=== PATIENT | male | born 1960 | race African-American/Black ===

== ENCOUNTER 2017-11-27 20:05 | Inpatient (IN) | payer MEDICARE, MEDICAID ==
[~2017-11-27] VITALS: Ht 170.2 cm; Wt 68.0 kg
[2017-11-27 20:05] VITALS: BP 89/63
[2017-11-27] MEDS ORDERED: Isovue-300 100ml vial INJ PRN (20:15)
--- NOTE | 2017-11-27 20:55 | Diagnostic Imaging Report ---
EXAM: XR Chest, 1 View CLINICAL HISTORY: SOB TECHNIQUE: Frontal view of the chest. COMPARISON: No relevant prior studies available. FINDINGS: Lungs: No consolidation. Pleural space: Unremarkable. No pneumothorax. Heart: Unremarkable. No cardiomegaly. Mediastinum: Unremarkable. Bones/joints: No acute fracture. IMPRESSION: No acute cardiopulmonary disease.
[2017-11-27 22:00] VITALS: BP 105/69
[2017-11-27 22:00] LABS: EOSINOPHILS % (AUTO) 0.1 % (0.0-3.0); HEMATOCRIT 45.2 % (42.0-52.0); HEMOGLOBIN 15.4 G/DL (14.2-18.0); LYMPHOCYTES % (AUTO) 18.6 % (20.0-45.0); MEAN CORPUSCULAR VOLUME 89 FL (80-99); MONOCYTES % (AUTO) 6.7 % (1.0-10.0); NEUTROPHILS % (AUTO) 73.5 % (45.0-75.0); PLATELET COUNT 157 K/UL (150-450); WHITE BLOOD COUNT 9.1 K/UL (4.8-10.8)
[2017-11-27 22:08] LABS: INR 1.1 (0.9-1.1)
[2017-11-27] MEDS ORDERED: LISINOPRIL20 MG ORAL (22:11)
[2017-11-27] MEDS ORDERED: NORMODYNE300 MG ORAL (22:11)
[2017-11-27] MEDS ORDERED: SIMVASTATIN20 MG ORAL (22:11)
[2017-11-27] MEDS ORDERED: METFORMIN HCL1000 M1 ORAL (22:11)
[2017-11-27] MEDS ORDERED: ASPIR 8181 MG ORAL (22:11)
[2017-11-27] MEDS ORDERED: GLIPIZIDE5 MG ORAL (22:11)
[2017-11-27] MEDS ORDERED: ADALAT10 MG ORAL (22:11)
[2017-11-27 22:14] LABS: ANION GAP 12 mmol/L (5-15); BLOOD UREA NITROGEN 88 mg/dL (7-18); CARBON DIOXIDE 27 MMOL/L (21-32); CHLORIDE 99 MMOL/L (98-107); CREATININE 2.8 MG/DL (0.55-1.30); SODIUM 138 MMOL/L (136-145)
[2017-11-27 22:20] LABS: ALANINE AMINOTRANSFERASE 24 U/L (12-78); ALBUMIN 3.8 G/DL (3.4-5.0); ALBUMIN/GLOBULIN RATIO 1.1 (1.0-2.7); ALKALINE PHOSPHATASE 83 U/L (46-116); ASPARTATE AMINO TRANSFERASE 19 U/L (15-37); BILIRUBIN,TOTAL 0.9 MG/DL (0.2-1.0)
[2017-11-27] MEDS ORDERED: Insulin Human Regular 100units/ml 3ml IV ONE (22:30)
--- NOTE | 2017-11-27 23:12 | Emergency Room Report ---
History of Present Illness General Chief Complaint: Syncope Source: Patient, EMS Present Illness HPI Patient is a 57-year-old male sent in by after witnessed syncopal episode at home. Patient prior history of diabetes. The patient was noted to have had been vomiting multiple times prior to syncopal episode. The patient had been reportedly having some epigastric pain. He reportedly had been urinating normally. Patient has type 2 diabetes. Allergies: Coded Allergies: No Known Allergies (Unverified , 11/27/17) Patient History Past Medical History: see triage record Reviewed Nursing Documentation: PMH: Agreed; PSxH: Agreed Nursing Documentation-PMH Past Medical History: No History, Except For Hx Hypertension: Yes Hx Diabetes: Yes Hx Gastrointestinal Problems: Yes - Acid reflux Hx Neurological Problems: Yes - Brain aneurysm Review of Systems All Other Systems: limited - by mental status Physical Exam Vital Signs Date Time Temp Pulse Resp B/P (MAP) Pulse Ox O2 Delivery O2 Flow Rate FiO2 11/27/17 19:40 98.8 106 19 89/63 100 Room Air 98.8 Sp02 EP Interpretation: reviewed, normal General Appearance: normal inspection, no apparent distress, moderate distress , Chronically Ill Head: atraumatic ENT: normal ENT inspection, hearing grossly normal, normal voice Neck: normal inspection, full range of motion, supple, no meningismus, no bony tend Respiratory: normal inspection, lungs clear, normal breath sounds, no respiratory distress, no retraction, no wheezing Cardiovascular #1: no edema, tachycardia Gastrointestinal: non tender, soft, no guarding, no hernia Genitourinary: no CVA tenderness Musculoskeletal: normal inspection, back normal, normal range of motion Neurologic: normal inspection, alert, oriented x3, 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 Differential diagnosis included but was not limited to sepsis,arrhythmia, orthostatic hypotension, hypovolemia, vasovagal, anemia among others.Patient was noted to have elevation of his BUN/creatinine compared to his baseline. Patient was given IV medication for hyperglycemia. Per the patient's patient had previously normal renal function and previously been hospitalized at [facility] about one month ago.The patient was taking multiple blood pressure medications which would be expected to cause bradycardia however the patient was tachycardic initially. Patient was noted to have improvement in his blood pressure after IV hydration. He had been given IV fluids by paramedics.Dr. Andres was contacted for Dr. Billy due to panel physician. Labs Test 11/27/17 21:46 White Blood Count 9.1 K/UL (4.8-10.8) Red Blood Count 5.10 M/UL (4.70-6.10) Hemoglobin 15.4 G/DL (14.2-18.0) Hematocrit 45.2 % (42.0-52.0) Mean Corpuscular Volume 89 FL (80-99) Mean Corpuscular Hemoglobin 30.2 PG (27.0-31.0) Mean Corpuscular Hemoglobin Concent 34.0 G/DL (32.0-36.0) Red Cell Distribution Width 12.0 % (11.6-14.8) Platelet Count 157 K/UL (150-450) Mean Platelet Volume 8.5 FL (6.5-10.1) Neutrophils (%) (Auto) 73.5 % (45.0-75.0) Lymphocytes (%) (Auto) 18.6 % (20.0-45.0) Monocytes (%) (Auto) 6.7 % (1.0-10.0) Eosinophils (%) (Auto) 0.1 % (0.0-3.0) Basophils (%) (Auto) 1.0 % (0.0-2.0) Prothrombin Time 11.7 SEC (9.30-11.50) Prothromb Time International Ratio 1.1 (0.9-1.1) Activated Partial Thromboplast Time 20 SEC (23-33) Sodium Level 138 MMOL/L (136-145) Potassium Level 4.0 MMOL/L (3.5-5.1) Chloride Level 99 MMOL/L (98-107) Carbon Dioxide Level 27 MMOL/L (21-32) Anion Gap 12 mmol/L (5-15) Blood Urea Nitrogen 88 mg/dL (7-18) Creatinine 2.8 MG/DL (0.55-1.30) Estimat Glomerular Filtration Rate 28.6 mL/min (>60) Glucose Level 475 MG/DL (74-106) Lactic Acid Level 2.50 mmol/L (0.4-2.0) Calcium Level 9.0 MG/DL (8.5-10.1) Total Bilirubin 0.9 MG/DL (0.2-1.0) Aspartate Amino Transf (AST/SGOT) 19 U/L (15-37) Alanine Aminotransferase (ALT/SGPT) 24 U/L (12-78) Alkaline Phosphatase 83 U/L (46-116) Troponin I 0.021 ng/mL (0.000-0.056) Total Protein 7.2 G/DL (6.4-8.2) Albumin 3.8 G/DL (3.4-5.0) Globulin 3.4 g/dL Albumin/Globulin Ratio 1.1 (1.0-2.7) EKG Diagnostic Results Rate: normal Rhythm: NSR - 95 ST Segments: other - prolonged qt Rhythm Strip Diag. Results EP Interpretation: yes Rhythm: NSR, no PVC's, no ectopy Last Vital Signs Date Time Temp Pulse Resp B/P (MAP) Pulse Ox O2 Delivery O2 Flow Rate FiO2 11/27/17 19:40 98.8 106 19 89/63 100 Room Air 98.8 Status: improved Disposition: ADMITTED INPATIENT Condition: Serious Referrals: NOT CHOSEN IPA/,REFERRING (PCP) Thiago Mohan MD Nov 27, 2017 23:12
[2017-11-27 23:40] VITALS: BP 125/71
[2017-11-28 00:19] VITALS: BP 87/58
[2017-11-28] MEDS: D5NS 1,000 ML IV SCH ×2 (02:11→12:11)
[2017-11-28 04:00] VITALS: BP 109/58
[2017-11-28] MEDS: NovoLOG Insulin Flexpen SUBQ SCH ×4 (06:29→20:53)
[2017-11-28] MEDS ORDERED: NovoLOG Insulin Flexpen SUBQ SCH (06:30)
[2017-11-28 07:51] LABS: BASOPHILS % (AUTO) 0.8 % (0.0-2.0); EOSINOPHILS % (AUTO) 0.3 % (0.0-3.0); HEMOGLOBIN 13.2 G/DL (14.2-18.0); LYMPHOCYTES % (AUTO) 22.8 % (20.0-45.0); MEAN CORPUSCULAR VOLUME 88 FL (80-99); MONOCYTES % (AUTO) 6.2 % (1.0-10.0); PLATELET COUNT 181 K/UL (150-450); RED BLOOD COUNT 4.55 M/UL (4.70-6.10); RED CELL DISTRIBUTION WIDTH 11.8 % (11.6-14.8); WHITE BLOOD COUNT 9.2 K/UL (4.8-10.8)
[2017-11-28 08:00] VITALS: BP 139/74
[2017-11-28 08:12] LABS: ANION GAP 11 mmol/L (5-15); BLOOD UREA NITROGEN 82 mg/dL (7-18); CALCIUM 8.5 MG/DL (8.5-10.1); CARBON DIOXIDE 26 MMOL/L (21-32); CHLORIDE 101 MMOL/L (98-107); CREATININE 2.3 MG/DL (0.55-1.30); POTASSIUM 3.1 MMOL/L (3.5-5.1); SODIUM 138 MMOL/L (136-145)
[2017-11-28 12:00] VITALS: BP 131/78
[2017-11-28 12:30] VITALS: BP_SYST 113; BP_SYST 114; BP_SYST 118; BP_DIAS 71; BP_DIAS 72; BP_DIAS 83
--- NOTE | 2017-11-28 14:02 | History and Physical ---
History of Present Illness General Date patient seen: Nov 28, 2017 Time patient seen: 10:00 Reason for Hospitalization: Syncope Present Illness HPI 57 year old man with history of HTN, DM2, dyslipidemia who presents with a syncopal episode last night while at home. He is a poor historian, unable to provide details of the episode but cam tell me that he was feeling generally well prior to this. No chest pain, dyspnea, palpitations prior to the syncope. He remembers waking up en route to the ED with EMS. He also reports nausea and vomiting, no diarrhea, abdominal pain, fever or chills. In ED he was noted to be hypotensive with elevated creatinine and potassium levels. He current feels well, is ambulating independently per nursing. Allergies: Coded Allergies: No Known Allergies (Unverified , 11/27/17) Medication History Scheduled Aspirin* (Aspir 81*), 81 MG ORAL DAILY, (Reported) Glipizide* (Glipizide*), 10 MG ORAL BIDAC, (Reported) Labetalol HCl (Labetalol HCl), 300 MG ORAL EVERY 12 HOURS, (Reported) Lisinopril (Lisinopril*), 20 MG ORAL DAILY, (Reported) Metformin Hcl* (Metformin Hcl*), 1,000 MG ORAL BID, (Reported) Nifedipine (Nifedipine*), 30 MG ORAL DAILY, (Reported) Simvastatin (Zocor), 20 MG ORAL BEDTIME, (Reported) Patient History Healthcare decision maker Resuscitation status Full Code Advanced Directive on File Family History Family History: FH: diabetes mellitus Social History Social History: (1) Marijuana smoker Review of Systems Constitutional: Denies: chills, fever Eye: Denies: blurred vision, double vision ENT: Denies: throat pain Respiratory: Denies: cough, wheezing Cardiovascular: Reports: syncope; Denies: chest pain, edema, palpitations Gastrointestinal: Denies: abdominal pain, constipation, diarrhea Genitourinary: Denies: discharge, dysuria Musculoskeletal: Denies: back pain, joint pain Skin: Denies: rash, change in color Neurological: Reports: syncope; Denies: headache, numbness, focal weakness Endocrine: Denies: excessive sweating, flushing Hematologic/Lymphatic: Denies: anemia, blood clots Physical Exam General Appearance: no apparent distress, alert HEENT: normocephalic, atraumatic, anicteric Neck: non-tender, normal alignment, supple Respiratory/Chest: chest wall non-tender, lungs clear, normal breath sounds, no respiratory distress Cardiovascular/Chest: normal peripheral pulses, normal rate, regular rhythm Abdomen: normal bowel sounds, non tender, soft Extremities: normal range of motion, non-tender, normal inspection Skin Exam: normal pigmentation, warm/dry 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, no motor/sensory deficits, alert, oriented x 3 Last 24 Hour Vital Signs Date Time Temp Pulse Resp B/P (MAP) Pulse Ox O2 Delivery O2 Flow Rate FiO2 11/28/17 12:30 113/72 (86) 118/83 (95) 114/71 (85) 11/28/17 12:00 98.0 88 131/78 (95) 100 98.0 11/28/17 09:00 Room Air 11/28/17 08:00 94 11/28/17 08:00 96.8 86 139/74 (95) 100 96.8 11/28/17 04:00 98.2 91 109/58 (75) 100 98.2 11/28/17 04:00 91 11/28/17 00:26 Nasal Cannula 2.0 11/28/17 00:19 97.7 107 87/58 (68) 100 97.7 11/28/17 00:00 109 11/27/17 23:55 98.6 101 19 125/71 100 Nasal Cannula 2.0 98.6 11/27/17 23:40 98.6 101 19 125/71 100 Nasal Cannula 2.0 98.6 11/27/17 22:00 98.7 103 18 105/69 100 Nasal Cannula 2.0 98.7 11/27/17 20:05 98.8 111 19 89/63 100 Room Air 98.8 11/27/17 19:40 98.8 106 19 89/63 100 Room Air 98.8 Intake and Output 11/27/17 11/28/17 19:00 07:00 Intake Total 200 ml Output Total 0 ml Balance 200 ml Intake Oral 200 ml Output Urine Total 0 ml Laboratory Tests Test 11/27/17 21:46 11/28/17 06:55 White Blood Count 9.1 K/UL (4.8-10.8) 9.2 K/UL (4.8-10.8) Red Blood Count 5.10 M/UL (4.70-6.10) 4.55 M/UL (4.70-6.10) L Hemoglobin 15.4 G/DL (14.2-18.0) 13.2 G/DL (14.2-18.0) L Hematocrit 45.2 % (42.0-52.0) 40.0 % (42.0-52.0) L Mean Corpuscular Volume 89 FL (80-99) 88 FL (80-99) Mean Corpuscular Hemoglobin 30.2 PG (27.0-31.0) 29.0 PG (27.0-31.0) Mean Corpuscular Hemoglobin Concent 34.0 G/DL (32.0-36.0) 32.9 G/DL (32.0-36.0) Red Cell Distribution Width 12.0 % (11.6-14.8) 11.8 % (11.6-14.8) Platelet Count 157 K/UL (150-450) 181 K/UL (150-450) Mean Platelet Volume 8.5 FL (6.5-10.1) 9.1 FL (6.5-10.1) Neutrophils (%) (Auto) 73.5 % (45.0-75.0) 70.0 % (45.0-75.0) Lymphocytes (%) (Auto) 18.6 % (20.0-45.0) L 22.8 % (20.0-45.0) Monocytes (%) (Auto) 6.7 % (1.0-10.0) 6.2 % (1.0-10.0) Eosinophils (%) (Auto) 0.1 % (0.0-3.0) 0.3 % (0.0-3.0) Basophils (%) (Auto) 1.0 % (0.0-2.0) 0.8 % (0.0-2.0) Prothrombin Time 11.7 SEC (9.30-11.50) H Prothromb Time International Ratio 1.1 (0.9-1.1) Activated Partial Thromboplast Time 20 SEC (23-33) L Sodium Level 138 MMOL/L (136-145) 138 MMOL/L (136-145) Potassium Level 4.0 MMOL/L (3.5-5.1) 3.1 MMOL/L (3.5-5.1) L Chloride Level 99 MMOL/L (98-107) 101 MMOL/L (98-107) Carbon Dioxide Level 27 MMOL/L (21-32) 26 MMOL/L (21-32) Anion Gap 12 mmol/L (5-15) 11 mmol/L (5-15) Blood Urea Nitrogen 88 mg/dL (7-18) H 82 mg/dL (7-18) H Creatinine 2.8 MG/DL (0.55-1.30) H 2.3 MG/DL (0.55-1.30) H Estimat Glomerular Filtration Rate 28.6 mL/min (>60) 35.9 mL/min (>60) Glucose Level 475 MG/DL (74-106) H 434 MG/DL (74-106) H Lactic Acid Level 2.50 mmol/L (0.4-2.0) H Calcium Level 9.0 MG/DL (8.5-10.1) 8.5 MG/DL (8.5-10.1) Total Bilirubin 0.9 MG/DL (0.2-1.0) Aspartate Amino Transf (AST/SGOT) 19 U/L (15-37) Alanine Aminotransferase (ALT/SGPT) 24 U/L (12-78) Alkaline Phosphatase 83 U/L (46-116) Troponin I 0.021 ng/mL (0.000-0.056) Total Protein 7.2 G/DL (6.4-8.2) Albumin 3.8 G/DL (3.4-5.0) Globulin 3.4 g/dL Albumin/Globulin Ratio 1.1 (1.0-2.7) Height (Feet): 5 Height (Inches): 7.00 Weight (Pounds): 150 Medications Current Medications Medications (Trade) Dose Ordered Sig/Arnulfo Route PRN Reason Start Time Stop Time Status Last Admin Dose Admin Acetaminophen (Tylenol) 650 mg Q6H PRN ORAL Mild Pain/Temp > 100.5 11/28/17 01:15 12/28/17 01:14 Dextrose (Dextrose 50%) 25 ml STAT PRN IV Hypoglycemia 11/28/17 01:15 12/28/17 01:14 Dextrose (Dextrose 50%) 50 ml STAT PRN IV Hypoglycemia 11/28/17 01:15 12/28/17 01:14 Dextrose/Sodium Chloride 1,000 ml @ 100 mls/hr Q10H IV 11/28/17 03:00 12/28/17 02:59 11/28/17 12:11 Insulin Aspart (NovoLOG) BEFORE MEALS AND HS SUBQ 11/28/17 06:30 12/28/17 06:29 11/28/17 12:06 Iopamidol (Isovue-300 100ml) 100 ml NOW PRN INJ Radiology Procedure 11/27/17 20:15 Ondansetron HCl (Zofran) 4 mg Q4HR PRN IVP Nausea & Vomiting 11/28/17 01:15 12/28/17 01:14 Assessment/Plan Problem List: (1) Syncope Assessment & Plan: Suspected due to dehydration, hypovolemia, BP has improved. Will check orthostats and continue with IV fluids, change D5NS to NS. Continue cardiac monitoring. ICD Codes: R55 - Syncope and collapse SNOMED: 030961878 (2) Acute renal insufficiency Assessment & Plan: Possible RAMON, patient is sure about history of kidney disease and creatinine has improved since admission. Continue with IV fluids and hold all nephrotoxic meds, (ACEI, NSAIDS, diuretics). ICD Codes: N28.9 - Disorder of kidney and ureter, unspecified SNOMED: 975659075 (3) Type 2 diabetes mellitus Assessment & Plan: Uncontrolled, stop D5, continue lispro sliding scale. If sugars remains uncontrolled can start low dose Lantus as inpatient. ICD Codes: E11.9 - Type 2 diabetes mellitus without complications SNOMED: 24738693 Assessment/Plan Hyperkalemia, repeat K is 5.0, will continue to monitor BMP closely. Essential HTN, hold anti-hypertensives given low blood pressures. VTE PPx Venodyes Full Code Patient will require a hospitalization crossing 2 midnights in order to get IV hydration and monitoring of renal function. 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 Ortega Skinner MD Nov 28, 2017 14:02
--- NOTE | 2017-11-28 15:41 | Cardiology Report ---
APPROVED REPORT EKG Measurement Heart [id number] Sinus rhythm with premature atrial complexes Right axis deviation Incomplete right bundle branch block Nonspecific T wave abnormality Prolonged QT Abnormal ECG
[2017-11-28 20:00] VITALS: BP 126/70
[2017-11-28] MEDS: Heparin 5000 units/ml inj SUBQ SCH (20:54)
[2017-11-29] VITALS: BP 112/70
[2017-11-29 04:00] VITALS: BP 116/61
[2017-11-29] MEDS: NovoLOG Insulin Flexpen SUBQ SCH ×3 (06:14→16:30)
[2017-11-29 07:45] LABS: BASOPHILS % (AUTO) 0.5 % (0.0-2.0); EOSINOPHILS % (AUTO) 1.3 % (0.0-3.0); HEMATOCRIT 36.5 % (42.0-52.0); HEMOGLOBIN 12.3 G/DL (14.2-18.0); LYMPHOCYTES % (AUTO) 32.7 % (20.0-45.0); MEAN CORPUSCULAR VOLUME 88 FL (80-99); MONOCYTES % (AUTO) 5.9 % (1.0-10.0); NEUTROPHILS % (AUTO) 59.5 % (45.0-75.0); PLATELET COUNT 167 K/UL (150-450); RED BLOOD COUNT 4.17 M/UL (4.70-6.10); WHITE BLOOD COUNT 7.2 K/UL (4.8-10.8)
[2017-11-29 08:23] LABS: ANION GAP 10 mmol/L (5-15); BLOOD UREA NITROGEN 38 mg/dL (7-18); CALCIUM 8.5 MG/DL (8.5-10.1); CARBON DIOXIDE 26 MMOL/L (21-32); CHLORIDE 107 MMOL/L (98-107); CREATININE 1.3 MG/DL (0.55-1.30); SODIUM 143 MMOL/L (136-145)
--- NOTE | 2017-11-29 08:42 | Physician Query ---
--------- THIS DOCUMENT IS A PERMANENT PART OF THE MEDICAL RECORD --------- PLEASE COMPLETE THE DOCUMENT BEFORE SIGNING Dear Dr. Skinner Date: 11/29/2017 Staffing Clerk/CDS Name: Carol Ann Burns Staffing Clerk / CDS Phone # [phone] Exercise your independent professional judgment when responding to query. Question asked do not imply a particular answer is desired/expected Clinical Documentation States: Patient is admitted with dehydration. "Acute renal insufficiency" and "Possible RAMON" was documented in Assessment/plan. Clinical Findings Show: Creatinine - 11/27/17: 2.8, 11/28/17: 2.3, BUN: 88, 82 Can you please Clarify the condition below: Etiology [ ] ARF w/ Tubular Necrosis [ ] ARF w/ Cortical Necrosis [ ] ARF w/ Medullary Necrosis [ ] Acute Renal Failure (unspecified) [ ] Other: If Chronic, please specify the stage: [ ] CKD Stage 1 [ ] CKD Stage 2 [ ] CKD Stage 3 [ ] CKD Stage 4 [ ] CKD Stage 5 [ ] ESRD [ ] Not applicable Condition Present on Admission: [ ] Yes [ ] No [ ] Clinically Undeterminable Please also document in your Progress Notes and/or Discharge Summary and indicate if the condition was present on admission. Lakia ZAMBRANO
[2017-11-29] MEDS: Heparin 5000 units/ml inj SUBQ SCH (08:48)
[2017-11-29 09:00] VITALS: BP 135/93
--- NOTE | 2017-11-29 11:15 | Cardiology Report ---
APPROVED REPORT EXAM: Two-dimensional and M-mode echocardiogram with Doppler and color Doppler. INDICATION Syncope M-Mode DIMENSIONS IVSd1.2 (0.7-1.1cm)Left Atrium (MM)3.9 (1.6-4.0cm) LVDd4.9 (3.5-5.6cm)Aortic Root3.1 (2.0-3.7cm) PWd1.0 (0.7-1.1cm)Aortic Cusp Exc.2.3 (1.5-2.0cm) LVDs2.9 (2.5-4.0cm) PWs1.6 cm Normal left ventricular chamber size, systolic function and wall motion. Left ventricular ejection fraction estimated to be 55 %. Mild left ventricular hypertrophy. No evidence of pericardial effusion. All other cardiac chamber sizes are within normal limits. Focal aortic valve sclerosis with adequate cusp excursion. Mildly thickened mitral valve leaflets with normal excursion. Mild mitral annulus and aortic root calcification. Normal pulmonic valve structure. Normal tricuspid valve structure. IVC is normal in size with physiological collapse. A color flow and spectral Doppler study was performed and revealed: Trace aortic insufficiency. No mitral regurgitation. Mitral diastolic velocities suggest mild left ventricular diastolic dysfunction (Grade I). Trace tricuspid regurgitation. Tricuspid systolic velocities suggests peak right ventricular systolic pressure of 14 mmHg. No pulmonic regurgitation present.
[2017-11-29 12:00] VITALS: BP 147/68
[2017-11-29] MEDS ORDERED: Potassium Chloride 10 MEQ in NS 110 ML IV SCH (13:00)
--- NOTE | 2017-11-29 13:40 | Discharge Instructions ---
Discharge Instructions Discharge Instructions Follow up with: PCP in 1 week Diet: diabetic calorie control Special Instructions Stop taking lisinopril and resume after 3 days For Congestive Heart Failure Reminder Report to your physician any weight gain of 5 pounds or more in one week. Ortega Skinner MD Nov 29, 2017 13:40
--- NOTE | 2017-11-29 13:49 | Discharge Summary ---
Discharge Summary Hospital Course Date of Admission Nov 27, 2017 at 21:37 Date of Discharge 11/29/17 Admitting Diagnosis SYNCOPE, HYPOTENSION, RAMON HPI Jean Tyson is a 57 year old male who was admitted on Nov 27, 2017 at 21:37 for Syncope,Hypotension Consultations None Hospital Course Patient presented with syncope and hypotension, found to have RAMON all related to volume depletion/dehydration. He was treated with IV hydration and holding of ACEI, metformin with resolution RAMON and hypotension. He is ambulating independently. Patient had mild hypokalemia which was replaced with IV and oral KCl, will be discharged home in stable. Instructed to hold lisinopril for 3 days and follow up with his PCP within 1 week. Time spent discharging Mr. Tyson was 35 minutes which included time spent reviewing hospital course and discharge instructions with the patient. Discharge Medications Continued Medications: Aspirin* (Aspir 81*) 81 Mg Tablet.dr 81 MG ORAL DAILY, TAB (This prescription has been renewed) Glipizide* (Glipizide*) 5 Mg Tablet 10 MG ORAL BIDAC, TAB (This prescription has been renewed) Labetalol HCl (Labetalol HCl) 300 Mg Tablet 300 MG ORAL EVERY 12 HOURS, TAB (This prescription has been renewed) Metformin Hcl* (Metformin Hcl*) 1,000 Mg Tablet 1000 MG ORAL BID, TAB (This prescription has been renewed) Nifedipine (Nifedipine*) 10 Mg Capsule 30 MG ORAL DAILY, CAP (This prescription has been renewed) Simvastatin (Zocor) 20 Mg Tablet 20 MG ORAL BEDTIME, TAB (This prescription has been renewed) Discontinued Medications: Lisinopril (Lisinopril*) 20 Mg Tablet 20 MG ORAL DAILY, TAB Discharge Discharge Disposition Patient was discharged to Home Discharge Diagnoses: (1) RAMON (acute kidney injury) (2) Hypokalemia (3) Dehydration (4) Syncope Discharge Instructions Discharge Instructions Follow up with: PCP in 1 week Ortega Skinner MD Nov 29, 2017 13:48
[2017-11-29 16:00] VITALS: BP 128/82
--- NOTE | 2017-11-30 16:17 | Consultation ---
History of Present Illness General Date patient seen: Nov 28, 2017 Chief Complaint: Syncope Present Illness HPI 57 year old man with history of HTN, DM2, dyslipidemia who presents with a syncopal episode last night while at home the pt is confused and is a poor historian Allergies: Coded Allergies: No Known Allergies (Unverified , 11/27/17) Medication History Scheduled Aspirin* (Aspir 81*), 81 MG ORAL DAILY, (Reported) Glipizide* (Glipizide*), 10 MG ORAL BIDAC, (Reported) Labetalol HCl (Labetalol HCl), 300 MG ORAL EVERY 12 HOURS, (Reported) Metformin Hcl* (Metformin Hcl*), 1,000 MG ORAL BID, (Reported) Nifedipine (Nifedipine*), 30 MG ORAL DAILY, (Reported) Simvastatin (Zocor), 20 MG ORAL BEDTIME, (Reported) Discontinued Medications Lisinopril (Lisinopril*), 20 MG ORAL DAILY, (Reported) Discontinued Reason: MD discontinued med Patient History History Provided By: Patient, Medical Record, PMD Healthcare decision maker SELF Resuscitation status Full Code Advanced Directive on File Past Medical/Surgical History Past Medical/Surgical History: (1) Marijuana smoker (2) Hypokalemia (3) RAMON (acute kidney injury) Review of Systems Psychiatric: Reports: prior hx, anxiety, depressed feelings, emotional problems Physical Exam General Appearance: no apparent distress, alert, confused Intake and Output 11/29/17 11/30/17 18:59 06:59 Intake Total 890 ml Output Total 650 ml Balance 240 ml Intake Oral 340 ml IV Total 550 ml Output Urine Total 650 ml # Voids 3 Height (Feet): 5 Height (Inches): 7.00 Weight (Pounds): 150 Assessment/Plan Assessment/Plan Encephalopathy due to [facility] [place] Anxiety d/o -seroquel mackenzie crandall/Lior Jay MD Nov 30, 2017 16:17
--- NOTE | 2017-11-30 16:18 | General Progress Note ---
Assessment/Plan Status: progressing Assessment/Plan Encephalopathy due to [facility] [place] Anxiety d/o -seroquel prn -ro/st Subjective Date patient seen: Nov 29, 2017 Neurologic/Psychiatric: Reports: anxiety, depressed Allergies: Coded Allergies: No Known Allergies (Unverified , 11/27/17) Objective Intake and Output 11/29/17 11/30/17 18:59 06:59 Intake Total 890 ml Output Total 650 ml Balance 240 ml Intake Oral 340 ml IV Total 550 ml Output Urine Total 650 ml # Voids 3 Height (Feet): 5 Height (Inches): 7.00 Weight (Pounds): 150 General Appearance: no apparent distress, alert, confused Lior Mcfarlane MD Nov 30, 2017 16:18
== END 2017-11-29 17:44 | disposition home or self-care (01) | DRG 682 ==
LOC: EDBD 20:05 → EMR 21:28 → 2E 21:37 → EDBEDREQ 22:19
DX: N17.0 Acute kidney failure with tubular necrosis (principal); G93.40 Encephalopathy, unspecified; E86.0 Dehydration; E11.9 Type 2 diabetes mellitus without complications; I10 Essential (primary) hypertension; E78.5 Hyperlipidemia, unspecified; E87.6 Hypokalemia; F41.9 Anxiety disorder, unspecified
CPT/HCPCS: 36415; 71045; 80048; 80053; 82962; 83605; 84484; 85025; 85610; 85730; 87040; 93005; 93306; 96361; 96374; 99285; J1815; J8499

== ENCOUNTER 2018-02-26 05:28 | Inpatient (IN) | payer MEDICARE, MEDICAID ==
[~2018-02-26] VITALS: Ht 175.3 cm; Wt 76.7 kg
[2018-02-26 05:28] VITALS: BP 123/86
[~2018-02-26 05:28] MED LIST: ADALAT10 MG ORAL; ASPIR 8181 MG ORAL; GLIPIZIDE5 MG ORAL; LISINOPRIL20 MG ORAL; METFORMIN HCL1000 M1 ORAL; NORMODYNE300 MG ORAL; SIMVASTATIN20 MG ORAL
--- NOTE | 2018-02-26 06:14 | Emergency Room Report ---
History of Present Illness General Chief Complaint: Syncope Source: Patient (Sal Ricci MD) Present Illness HPI 57-year-old male presents ED for evaluation. Patient brought in by EMS status post syncopal episode. Occurred prior to arrival. Patient states he was throwing up multiple times before he syncopized. Did not hit his head. Was with family who assisted him. Patient denies any headache. Denies any chest pain or shortness of breath. Notes history of diabetes and hypertension. Does not know the names of his medications but states he is compliant with his medications. Denies drug use. States he was admitted once before for similar episode. No other aggravating relieving factors. Denies any other associated symptoms (Sal Ricci MD) Allergies: Coded Allergies: No Known Allergies (Unverified , 11/27/17) Patient History Past Medical History: DM, HTN, GERD Past Surgical History: none Pertinent Family History: none Social History: Denies: smoking, alcohol use, drug use Immunizations: UTD Reviewed Nursing Documentation: PMH: Agreed; PSxH: Agreed (Sal Ricci MD) Nursing Documentation-PMH Hx Cardiac Problems: Yes Hx Hypertension: Yes Hx Diabetes: Yes Hx Gastrointestinal Problems: Yes - Acid reflux Hx Neurological Problems: Yes - Brain aneurysm (Sal Ricci MD) Review of Systems All Other Systems: negative except mentioned in HPI (Sal Ricci MD) Physical Exam Vital Signs Date Time Temp Pulse Resp B/P (MAP) Pulse Ox O2 Delivery O2 Flow Rate FiO2 02/26/18 05:25 97.7 95 18 135/81 98 Room Air Sp02 EP Interpretation: reviewed, normal General Appearance: no apparent distress, alert, GCS 15, non-toxic Head: normocephalic, atraumatic Eyes: bilateral eye normal inspection, bilateral eye PERRL ENT: hearing grossly normal, normal pharynx, no angioedema, normal voice Neck: full range of motion, supple/symm/no masses Respiratory: chest non-tender, lungs clear, normal breath sounds, speaking full sentences Cardiovascular #1: regular rate, rhythm, no edema Cardiovascular #2: 2+ carotid (R), 2+ carotid (L), 2+ radial (R), 2+ radial (L) , 2+ dorsalis pedis (R), 2+ dorsalis pedis (L) Gastrointestinal: normal bowel sounds, non tender, soft, non-distended, no guarding, no rebound Rectal: deferred Genitourinary: normal inspection, no CVA tenderness Musculoskeletal: back normal, gait/station normal, normal range of motion, non- tender Neurologic: alert, oriented x3, responsive, motor strength/tone normal, sensory intact, speech normal Psychiatric: judgement/insight normal, memory normal, mood/affect normal, no suicidal/homicidal ideation Reflexes: 3+ bicep (R), 3+ bicep (L), 3+ tricep (R), 3+ tricep (L), 3+ knee (R) , 3+ knee (L) Skin: normal color, no rash, warm/dry, well hydrated Lymphatic: no adenopathy (Sal Ricci MD) Medical Decision Making Diagnostic Impression: Primary Impression: Syncope ER Course Patient presents with reports as noted on previous report Here following up on workup Patient's kidney function appears to be worsening again Given the patient's comorbidities including diabetes Further hydration is provided and patient requires further inpatient care Labs Test 02/26/18 06:05 White Blood Count 8.9 K/UL (4.8-10.8) Red Blood Count 5.64 M/UL (4.70-6.10) Hemoglobin 16.1 G/DL (14.2-18.0) Hematocrit 48.9 % (42.0-52.0) Mean Corpuscular Volume 87 FL (80-99) Mean Corpuscular Hemoglobin 28.6 PG (27.0-31.0) Mean Corpuscular Hemoglobin Concent 33.0 G/DL (32.0-36.0) Red Cell Distribution Width 12.1 % (11.6-14.8) Platelet Count 211 K/UL (150-450) Mean Platelet Volume 8.0 FL (6.5-10.1) Neutrophils (%) (Auto) 70.2 % (45.0-75.0) Lymphocytes (%) (Auto) 21.3 % (20.0-45.0) Monocytes (%) (Auto) 6.1 % (1.0-10.0) Eosinophils (%) (Auto) 1.3 % (0.0-3.0) Basophils (%) (Auto) 1.0 % (0.0-2.0) Sodium Level 140 MMOL/L (136-145) Potassium Level 3.3 MMOL/L (3.5-5.1) Chloride Level 100 MMOL/L (98-107) Carbon Dioxide Level 28 MMOL/L (21-32) Anion Gap 12 mmol/L (5-15) Blood Urea Nitrogen 68 mg/dL (7-18) Creatinine 3.3 MG/DL (0.55-1.30) Estimat Glomerular Filtration Rate 23.6 mL/min (>60) Glucose Level 211 MG/DL (74-106) Calcium Level 9.4 MG/DL (8.5-10.1) Total Bilirubin 0.5 MG/DL (0.2-1.0) Aspartate Amino Transf (AST/SGOT) 24 U/L (15-37) Alanine Aminotransferase (ALT/SGPT) 34 U/L (12-78) Alkaline Phosphatase 93 U/L (46-116) Total Creatine Kinase 59 U/L (26-308) Creatine Kinase MB 0.8 NG/ML (0.0-3.6) Creatine Kinase MB Relative Index 1.3 Pro-B-Type Natriuretic Peptide 96 pg/mL (0-125) Total Protein 8.0 G/DL (6.4-8.2) Albumin 4.0 G/DL (3.4-5.0) Globulin 4.0 g/dL Albumin/Globulin Ratio 1.0 (1.0-2.7) Urine Opiates Screen Negative (NEGATIVE) Urine Barbiturates Screen Negative (NEGATIVE) Phencyclidine (PCP) Screen Negative (NEGATIVE) Urine Amphetamines Screen Negative (NEGATIVE) Urine Benzodiazepines Screen Negative (NEGATIVE) Urine Cocaine Screen Negative (NEGATIVE) Urine Marijuana (THC) Screen Positive (NEGATIVE) (Malik Miller DO) EKG Diagnostic Results Rate: normal Rhythm: NSR ST Segments: no acute changes ASA given to the pt in ED: No (Sal Ricci MD) Rate: normal Rhythm: NSR ST Segments: other - Nonspecific ST T-wave changes (Malik Miller DO) Rhythm Strip Diag. Results EP Interpretation: yes Rhythm: NSR, no PVC's, no ectopy (Sal Ricci MD) EP Interpretation: yes Rate: 88 Rhythm: NSR, no PVC's, no ectopy (Malik Miller DO) Chest X-Ray Diagnostic Results Chest X-Ray Diagnostic Results : Chest X-Ray Ordered: Yes # of Views/Limited/Complete: 1 View Indication: Other - syncope EP Interpretation: Yes Interpretation: no consolidation, no effusion, no pneumothorax, no acute cardiopulmonary disease Impression: No acute disease Electronically Signed by: Electronically signed by Sal Ricci MD (Sal Ricci MD) Chest X-Ray Diagnostic Results : Chest X-Ray Ordered: Yes # of Views/Limited/Complete: 1 View Indication: Chest Pain EP Interpretation: Yes Interpretation: no consolidation, no effusion, no pneumothorax Impression: No acute disease Electronically Signed by: Malik Miller DO (Malik Miller DO) Last Vital Signs Date Time Temp Pulse Resp B/P (MAP) Pulse Ox O2 Delivery O2 Flow Rate FiO2 02/26/18 05:28 97.8 99 18 123/86 98 Room Air (Sal Ricci MD) Status: improved (Malik Miller DO) Disposition: ADMITTED INPATIENT Condition: Serious Sal Ricci MD Feb 26, 2018 06:14 Malik Miller DO Feb 26, 2018 07:44
[2018-02-26 06:21] LABS: EOSINOPHILS % (AUTO) 1.3 % (0.0-3.0); HEMATOCRIT 48.9 % (42.0-52.0); HEMOGLOBIN 16.1 G/DL (14.2-18.0); LYMPHOCYTES % (AUTO) 21.3 % (20.0-45.0); MEAN CORPUSCULAR VOLUME 87 FL (80-99); MONOCYTES % (AUTO) 6.1 % (1.0-10.0); NEUTROPHILS % (AUTO) 70.2 % (45.0-75.0); PLATELET COUNT 211 K/UL (150-450); RED BLOOD COUNT 5.64 M/UL (4.70-6.10); RED CELL DISTRIBUTION WIDTH 12.1 % (11.6-14.8); WHITE BLOOD COUNT 8.9 K/UL (4.8-10.8)
[2018-02-26 06:35] LABS: ANION GAP 12 mmol/L (5-15); BLOOD UREA NITROGEN 68 mg/dL (7-18); CALCIUM 9.4 MG/DL (8.5-10.1); CARBON DIOXIDE 28 MMOL/L (21-32); CHLORIDE 100 MMOL/L (98-107); CREATININE 3.3 MG/DL (0.55-1.30); POTASSIUM 3.3 MMOL/L (3.5-5.1); SODIUM 140 MMOL/L (136-145)
--- NOTE | 2018-02-26 06:53 | Diagnostic Imaging Report ---
EXAM: XR Chest, 1 View CLINICAL HISTORY: SYNCOPE TECHNIQUE: Frontal view of the chest. COMPARISON: Chest x-ray 11/27/17 FINDINGS: Lungs: Unremarkable. No consolidation. Pleural space: Unremarkable. No pneumothorax. Heart: Unremarkable. No cardiomegaly. Mediastinum: Unremarkable. Bones/joints: Unremarkable. IMPRESSION: No acute cardiopulmonary process.
[2018-02-26 06:58] LABS: ALANINE AMINOTRANSFERASE 34 U/L (12-78); ALKALINE PHOSPHATASE 93 U/L (46-116); ASPARTATE AMINO TRANSFERASE 24 U/L (15-37); BILIRUBIN,TOTAL 0.5 MG/DL (0.2-1.0); CKMB 0.8 NG/ML (0.0-3.6); CREATINE KINASE 59 U/L (26-308)
[2018-02-26 07:16] VITALS: BP 137/76
--- NOTE | 2018-02-26 08:55 | History and Physical ---
History of Present Illness General Date patient seen: Feb 26, 2018 Time patient seen: 08:42 Reason for Hospitalization: Syncope Present Illness HPI 56 yo male with h/o htn, dm, presents by EMS after syncopal episode. Patient did not hit his head. Family assisted him. Patient denies any visual changes or headaches, denies chest pain or sob. States he is compliant with his medications but does not know what he takes Patient has been admitted once for similar episode in the past, patient does not know why this happened in the past. Very poor historian. Denies any nausea/vomiting/abd pain/diarrhea/constipation/fevers/chills Social Hx reviewed, denies smoking, alcohol use. Admits to marijuana use but denies any other drug use fam hx reviewed: mentions DM in the family code status FULL Allergies: Coded Allergies: No Known Allergies (Unverified , 11/27/17) Medication History Scheduled Aspirin* (Aspir 81*), 81 MG ORAL DAILY, (Reported) Glipizide* (Glipizide*), 10 MG ORAL BIDAC, (Reported) Labetalol HCl (Labetalol HCl), 300 MG ORAL EVERY 12 HOURS, (Reported) Metformin Hcl* (Metformin Hcl*), 1,000 MG ORAL BID, (Reported) Nifedipine (Nifedipine*), 30 MG ORAL DAILY, (Reported) Simvastatin (Zocor), 20 MG ORAL BEDTIME, (Reported) Patient History Healthcare decision maker Resuscitation status Advanced Directive on File Family History Family History: FH: diabetes mellitus Review of Systems ROS Narrative 14 point ros reviewed and negative except per mentioned in HPI Physical Exam General Appearance: no apparent distress, alert Lines, tubes and drains: peripheral HEENT: normocephalic, atraumatic Neck: non-tender, supple, normal inspection Respiratory/Chest: chest wall non-tender, lungs clear, normal breath sounds, no respiratory distress, no accessory muscle use Cardiovascular/Chest: normal peripheral pulses, normal rate, regular rhythm Abdomen: normal bowel sounds, non tender, soft, no organomegaly, no mass Extremities: normal range of motion, non-tender, normal inspection, no calf tenderness Skin Exam: normal pigmentation, warm/dry 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, no motor/sensory deficits, alert, oriented x 3, responsive, normal mood/affect Last 24 Hour Vital Signs Date Time Temp Pulse Resp B/P (MAP) Pulse Ox O2 Delivery O2 Flow Rate FiO2 02/26/18 07:16 87 19 137/76 100 Room Air 02/26/18 05:28 97.8 99 18 123/86 98 Room Air 02/26/18 05:25 97.7 95 18 135/81 98 Room Air Intake and Output 02/25/18 02/26/18 18:59 06:59 Intake Total 1000 ml Balance 1000 ml Intake Oral 0 ml IV Total 1000 ml Laboratory Tests Test 02/26/18 06:05 White Blood Count 8.9 K/UL (4.8-10.8) Red Blood Count 5.64 M/UL (4.70-6.10) Hemoglobin 16.1 G/DL (14.2-18.0) Hematocrit 48.9 % (42.0-52.0) Mean Corpuscular Volume 87 FL (80-99) Mean Corpuscular Hemoglobin 28.6 PG (27.0-31.0) Mean Corpuscular Hemoglobin Concent 33.0 G/DL (32.0-36.0) Red Cell Distribution Width 12.1 % (11.6-14.8) Platelet Count 211 K/UL (150-450) Mean Platelet Volume 8.0 FL (6.5-10.1) Neutrophils (%) (Auto) 70.2 % (45.0-75.0) Lymphocytes (%) (Auto) 21.3 % (20.0-45.0) Monocytes (%) (Auto) 6.1 % (1.0-10.0) Eosinophils (%) (Auto) 1.3 % (0.0-3.0) Basophils (%) (Auto) 1.0 % (0.0-2.0) Sodium Level 140 MMOL/L (136-145) Potassium Level 3.3 MMOL/L (3.5-5.1) L Chloride Level 100 MMOL/L (98-107) Carbon Dioxide Level 28 MMOL/L (21-32) Anion Gap 12 mmol/L (5-15) Blood Urea Nitrogen 68 mg/dL (7-18) H Creatinine 3.3 MG/DL (0.55-1.30) H Estimat Glomerular Filtration Rate 23.6 mL/min (>60) Glucose Level 211 MG/DL (74-106) H Calcium Level 9.4 MG/DL (8.5-10.1) Total Bilirubin 0.5 MG/DL (0.2-1.0) Aspartate Amino Transf (AST/SGOT) 24 U/L (15-37) Alanine Aminotransferase (ALT/SGPT) 34 U/L (12-78) Alkaline Phosphatase 93 U/L (46-116) Total Creatine Kinase 59 U/L (26-308) Creatine Kinase MB 0.8 NG/ML (0.0-3.6) Creatine Kinase MB Relative Index 1.3 Troponin I 0.011 ng/mL (0.000-0.056) Pro-B-Type Natriuretic Peptide 96 pg/mL (0-125) Total Protein 8.0 G/DL (6.4-8.2) Albumin 4.0 G/DL (3.4-5.0) Globulin 4.0 g/dL Albumin/Globulin Ratio 1.0 (1.0-2.7) Urine Opiates Screen Negative (NEGATIVE) Urine Barbiturates Screen Negative (NEGATIVE) Phencyclidine (PCP) Screen Negative (NEGATIVE) Urine Amphetamines Screen Negative (NEGATIVE) Urine Benzodiazepines Screen Negative (NEGATIVE) Urine Cocaine Screen Negative (NEGATIVE) Urine Marijuana (THC) Screen Positive (NEGATIVE) H Height (Feet): 5 Height (Inches): 9.00 Weight (Pounds): 190 Assessment/Plan Problem List: (1) Syncope Assessment & Plan: unsure of cause fall precaution marijuana induced? dehydration? acute RAMON vs ATN? fluids bp monitoring glucose monitoring tele ICD Codes: R55 - Syncope and collapse SNOMED: 156811656 (2) RAMON (acute kidney injury) Assessment & Plan: Cr 3.3 has had ramon in the past that has improved unsure of cause ramon vs atn prerenal? aggressive hydration for now nephro consulted, appreciate recs ICD Codes: N17.9 - Acute kidney failure, unspecified SNOMED: 73585775 (3) Hypokalemia Assessment & Plan: K 3.3 replenish check mg level ICD Codes: E87.6 - Hypokalemia SNOMED: 56344224 (4) Marijuana smoker Assessment & Plan: educated on marijuana cessation for over 15 mins unsure if laced with any other drugs however UDS positive only for marijuana ICD Codes: F12.90 - Cannabis use, unspecified, uncomplicated SNOMED: 98253576 (5) DM hyperosmolarity type II Assessment & Plan: ISS accuchecks hgba1c ICD Codes: E11.00 - Type 2 diabetes mellitus with hyperosmolarity without nonketotic hyperglycemic-hyperosmolar coma ([facility]) SNOMED: 63503249, 418153157 (6) Essential hypertension Assessment & Plan: resume home nifedipine tele monitor ICD Codes: I10 - Essential (primary) hypertension SNOMED: 00810780 Status: stable Assessment/Plan diet: renal DVT Prophylaxis: SCD, HSQ Code Status: Full Inpatient admit Hospital Classification Declaration: Based on this initial evaluation, and depending on the patient's clinical course, I anticipate that this patient will require hospitalization for 2-3 midnight for syncope and ramon and close hemodynamic monitoring. Disposition: Once the patient is stable to leave the hospital, I anticipate the patient will likely be discharged to the following environment: home I spent 73 minutes on this patient's case, and 35 minutes were dedicated to counseling and/or care coordination. Discussed with patient/family, nursing staff, SW/CM regarding clinical status, treatment course, and disposition planning. Time of note may not reflect time of encounter. Reece Ellison MD Feb 26, 2018 08:55
[2018-02-26] MEDS ORDERED: NIFEdipine 10mg cap ORAL SCH (09:00)
[2018-02-26] MEDS: Aspirin EC 81mg tab ORAL SCH (09:36)
--- NOTE | 2018-02-26 11:17 | Consultation ---
Consult Note Consult Note asked to eval for high Cr 57-year-old male presents ED for evaluation. Patient brought in by EMS status post syncopal episode. Occurred prior to arrival. Patient states he was throwing up multiple times before he syncopized. Did not hit his head. Was with family who assisted him. Patient denies any headache. Denies any chest pain or shortness of breath. Notes history of diabetes and hypertension. Does not know the names of his medications but states he is compliant with his medications. Denies drug use. States he was admitted once before for similar episode. No other aggravating relieving factors. Denies any other associated symptoms No Known Allergies (Unverified , 11/27/17) Past Medical History: DM, HTN, GERD Hx Cardiac Problems: Yes Hx Hypertension: Yes Hx Diabetes: Yes Hx Gastrointestinal Problems: Yes - Acid reflux Hx Neurological Problems: Yes - Brain aneurysm interviewed, examined data reviewed Assessment/Plan Acute on chronic renal failure- DM and HTN : Nephropathy ? Presents with syncope Low K MJ in urine Hydrate Urine studies monitor renal parameters BP check , control BS check, control per orders Luis A Dietz MD Feb 26, 2018 11:17
[2018-02-26 11:53] LABS: APPEARANCE,URINE CLEAR; BILIRUBIN, URINE NEGATIVE (NEGATIVE); COLOR,URINE PALE YELLOW; GLUCOSE, URINE (UA) 4+ (NEGATIVE); KETONES,URINE 3+ (NEGATIVE); LEUKOCYTE ESTERASE ,URINE NEGATIVE (NEGATIVE); NITRITE,URINE NEGATIVE (NEGATIVE); PH,URINE 5 (4.5-8.0); PROTEIN,URINE 1+ (NEGATIVE); UROBILINOGEN,URINE NORMAL MG/DL (0.0-1.0)
[2018-02-26 12:03] VITALS: BP 139/57
[2018-02-26 12:11] VITALS: BP 117/73
[2018-02-26] MEDS: NovoLOG Insulin Flexpen SUBQ SCH ×3 (12:27→22:06)
[2018-02-26 16:00] VITALS: BP 144/63
[2018-02-26 20:00] VITALS: BP 108/62
[2018-02-26] MEDS: Atorvastatin 20mg tab ORAL SCH (20:38)
[2018-02-27] VITALS (7 sets, daily range): BP systolic 102–135; BP diastolic 61–88
[2018-02-27] MEDS: NovoLOG Insulin Flexpen SUBQ SCH ×4 (06:04→20:51)
[2018-02-27 07:57] LABS: BASOPHILS % (AUTO) 0.6 % (0.0-2.0); HEMATOCRIT 37.2 % (42.0-52.0); HEMOGLOBIN 12.3 G/DL (14.2-18.0); LYMPHOCYTES % (AUTO) 41.1 % (20.0-45.0); MEAN CORPUSCULAR VOLUME 86 FL (80-99); MONOCYTES % (AUTO) 6.6 % (1.0-10.0); NEUTROPHILS % (AUTO) 47.7 % (45.0-75.0); PLATELET COUNT 179 K/UL (150-450); RED BLOOD COUNT 4.35 M/UL (4.70-6.10); RED CELL DISTRIBUTION WIDTH 11.6 % (11.6-14.8); WHITE BLOOD COUNT 7.1 K/UL (4.8-10.8)
[2018-02-27 08:29] LABS: ALANINE AMINOTRANSFERASE 18 U/L (12-78); ALBUMIN 3.1 G/DL (3.4-5.0); ALBUMIN/GLOBULIN RATIO 1.1 (1.0-2.7); ALKALINE PHOSPHATASE 69 U/L (46-116); ANION GAP 7 mmol/L (5-15); ASPARTATE AMINO TRANSFERASE 13 U/L (15-37); BILIRUBIN,TOTAL 0.4 MG/DL (0.2-1.0); BLOOD UREA NITROGEN 38 mg/dL (7-18); CALCIUM 8.5 MG/DL (8.5-10.1); CARBON DIOXIDE 29 MMOL/L (21-32); CHLORIDE 107 MMOL/L (98-107); CHOLESTEROL 112 MG/DL (< 200); CREATININE 1.7 MG/DL (0.55-1.30); HDL CHOLESTEROL 30 MG/DL (40-60); PHOSPHORUS 2.6 MG/DL (2.5-4.9); POTASSIUM 3.3 MMOL/L (3.5-5.1); SODIUM 142 MMOL/L (136-145); TRIGLYCERIDES 68 MG/DL (30-150)
[2018-02-27] MEDS: Aspirin EC 81mg tab ORAL SCH (08:52)
[2018-02-27] MEDS: Lisinopril 10mg tab ORAL SCH (08:54)
[2018-02-27] MEDS ORDERED: Propranolol 10mg tab ORAL SCH (09:00)
--- NOTE | 2018-02-27 09:04 | General Progress Note ---
Assessment/Plan Problem List: (1) Syncope Assessment & Plan: unsure of cause fall precaution marijuana induced? dehydration? acute RAMON vs ATN? has possible hx of brain aneurysm, MRI brain pending fluids bp monitoring glucose monitoring tele ICD Codes: R55 - Syncope and collapse SNOMED: 916327866 (2) RAMON (acute kidney injury) Assessment & Plan: Cr 3.3 on admit, now 1.7 with hydration dec IVF to 75cc ns nephro consulted, appreciate recs ICD Codes: N17.9 - Acute kidney failure, unspecified SNOMED: 59221263 (3) Hypokalemia Assessment & Plan: K 3.3 replenish check mg level ICD Codes: E87.6 - Hypokalemia SNOMED: 33485947 (4) Marijuana smoker Assessment & Plan: educated on marijuana cessation for over 15 mins unsure if laced with any other drugs however UDS positive only for marijuana ICD Codes: F12.90 - Cannabis use, unspecified, uncomplicated SNOMED: 07006593 (5) DM hyperosmolarity type II Assessment & Plan: ISS accuchecks hgba1c ICD Codes: E11.00 - Type 2 diabetes mellitus with hyperosmolarity without nonketotic hyperglycemic-hyperosmolar coma ([facility]) SNOMED: 91659409, 972729588 (6) Essential hypertension Assessment & Plan: resume home nifedipine tele monitor ICD Codes: I10 - Essential (primary) hypertension SNOMED: 51761045 Status: stable Assessment/Plan diet: renal DVT Prophylaxis: SCD, HSQ Code Status: Full Inpatient admit Hospital Classification Declaration: Based on this initial evaluation, and depending on the patient's clinical course, I anticipate that this patient will require hospitalization for 2-3 midnight for syncope and ramon and close hemodynamic monitoring. Disposition: Once the patient is stable to leave the hospital, I anticipate the patient will likely be discharged to the following environment: home I spent 60 minutes on this patient's case, and 30 minutes were dedicated to counseling and/or care coordination. Discussed with patient/family, nursing staff, SW/CM regarding clinical status, treatment course, and disposition planning. Time of note may not reflect time of encounter. Subjective Date patient seen: Feb 27, 2018 Time patient seen: 09:00 Allergies: Coded Allergies: No Known Allergies (Unverified , 11/27/17) Subjective f/u syncope, ramon patient hydrated overnight, Cr improving, now at 1.7 pending mri brain, has possible hx of brain aneurysm? denies any complaints will have PT work with patient as well denies headaches, vision changes, chest pain or sob, no nausea/vomiting or diarrhea ROS: 14 point ROS completed and negative except per above HPI Objective Last 24 Hour Vital Signs Date Time Temp Pulse Resp B/P (MAP) Pulse Ox O2 Delivery O2 Flow Rate FiO2 02/27/18 08:54 82 135/77 02/27/18 08:54 135/77 02/27/18 08:00 97.7 82 18 135/77 (96) 98 02/27/18 04:00 81 02/27/18 03:52 98.3 79 18 125/67 (86) 97 02/27/18 00:00 98.3 86 18 102/61 (75) 98 02/27/18 00:00 84 02/26/18 21:00 Room Air 02/26/18 20:00 95 02/26/18 20:00 98.5 91 18 108/62 (77) 97 02/26/18 16:00 97.0 85 19 144/63 (90) 97 02/26/18 16:00 92 02/26/18 12:11 97.2 102 18 117/73 (88) 97 02/26/18 12:00 98 02/26/18 10:02 69 140/60 Intake and Output 02/26/18 02/27/18 19:00 07:00 Intake Total 1560 ml 120 ml Output Total 750 ml Balance 810 ml 120 ml Intake Oral 360 ml 120 ml IV Total 1200 ml Output Urine Total 750 ml # Voids 2 Laboratory Tests 02/26/18 11:20: Urine Color Pale yellow, Urine Appearance Clear, Urine pH 5, Urine Specific [place] 1.020, Urine Protein 1+H, Urine Glucose (UA) 4+H, Urine Ketones 3+H, Urine Blood Negative, Urine Nitrite Negative, Urine Bilirubin Negative, Urine Urobilinogen Normal, Urine Leukocyte Esterase Negative, Urine RBC 0, Urine WBC 0 , Urine Squamous Epithelial Cells None, Urine Bacteria None, Urine Mucus Occasional, Urine Random Sodium 56 02/27/18 06:04: White Blood Count 7.1, Red Blood Count 4.35L, Hemoglobin 12.3L, Hematocrit 37.2L , Mean Corpuscular Volume 86, Mean Corpuscular Hemoglobin 28.3, Mean Corpuscular Hemoglobin Concent 33.1, Red Cell Distribution Width 11.6, Platelet Count 179, Mean Platelet Volume 8.7, Neutrophils (%) (Auto) 47.7, Lymphocytes (% ) (Auto) 41.1, Monocytes (%) (Auto) 6.6, Eosinophils (%) (Auto) 4.0H, Basophils (%) (Auto) 0.6, Sodium Level 142, Potassium Level 3.3L, Chloride Level 107, Carbon Dioxide Level 29, Anion Gap 7, Blood Urea Nitrogen 38H, Creatinine 1.7H, Estimat Glomerular Filtration Rate 50.8, Glucose Level 152H, Uric Acid 7.0, Calcium Level 8.5, Phosphorus Level 2.6, Magnesium Level 1.9, Total Bilirubin 0.4, Aspartate Amino Transf (AST/SGOT) 13L, Alanine Aminotransferase (ALT/SGPT) 18, Alkaline Phosphatase 69, Pro-B-Type Natriuretic Peptide 45, Total Protein 6.0L, Albumin 3.1L, Globulin 2.9, Albumin/Globulin Ratio 1.1, Triglycerides Level 68, Cholesterol Level 112, LDL Cholesterol 71, HDL Cholesterol 30L, Cholesterol/HDL Ratio 3.7, Thyroid Stimulating Hormone (TSH) 0.169L Height (Feet): 5 Height (Inches): 9.00 Weight (Pounds): 169 General Appearance: no apparent distress, alert EENT: PERRL/EOMI, normal ENT inspection, TMs normal, pharynx normal Neck: non-tender, normal alignment, supple, normal inspection Cardiovascular: normal peripheral pulses, normal rate, regular rhythm Respiratory/Chest: chest wall non-tender, lungs clear, normal breath sounds, no respiratory distress, no accessory muscle use Abdomen: normal bowel sounds, non tender, soft, no organomegaly, no mass Extremities: normal range of motion, non-tender, normal inspection 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
--- NOTE | 2018-02-27 15:40 | Nephrology Progress Note ---
Assessment/Plan Problem List: (1) RAMON (acute kidney injury) (2) Hypokalemia (3) Marijuana smoker (4) DM hyperosmolarity type II (5) Syncopal episodes Assessment Acute on chronic renal failure- DM and HTN : Nephropathy ? Presents with syncope Low K MJ in urine Plan Hydrate Urine studies monitor renal parameters BP check , control BS check, control per orders Subjective ROS Limited/Unobtainable: No Objective Objective Last 24 Hour Vital Signs Date Time Temp Pulse Resp B/P (MAP) Pulse Ox O2 Delivery O2 Flow Rate FiO2 02/27/18 12:00 97.5 109 20 135/88 (104) 100 02/27/18 11:40 108 02/27/18 08:54 82 135/77 02/27/18 08:54 135/77 02/27/18 08:10 Room Air 02/27/18 08:00 97.7 82 18 135/77 (96) 98 02/27/18 07:45 87 02/27/18 04:00 81 02/27/18 03:52 98.3 79 18 125/67 (86) 97 02/27/18 00:00 98.3 86 18 102/61 (75) 98 02/27/18 00:00 84 02/26/18 21:00 Room Air 02/26/18 20:00 95 02/26/18 20:00 98.5 91 18 108/62 (77) 97 02/26/18 16:00 97.0 85 19 144/63 (90) 97 02/26/18 16:00 92 Intake and Output 02/26/18 02/27/18 18:59 06:59 Intake Total 1560 ml 120 ml Output Total 750 ml Balance 810 ml 120 ml Intake Oral 360 ml 120 ml IV Total 1200 ml Output Urine Total 750 ml # Voids 2 Laboratory Tests 02/27/18 06:04: White Blood Count 7.1, Red Blood Count 4.35L, Hemoglobin 12.3L, Hematocrit 37.2L , Mean Corpuscular Volume 86, Mean Corpuscular Hemoglobin 28.3, Mean Corpuscular Hemoglobin Concent 33.1, Red Cell Distribution Width 11.6, Platelet Count 179, Mean Platelet Volume 8.7, Neutrophils (%) (Auto) 47.7, Lymphocytes (% ) (Auto) 41.1, Monocytes (%) (Auto) 6.6, Eosinophils (%) (Auto) 4.0H, Basophils (%) (Auto) 0.6, Sodium Level 142, Potassium Level 3.3L, Chloride Level 107, Carbon Dioxide Level 29, Anion Gap 7, Blood Urea Nitrogen 38H, Creatinine 1.7H, Estimat Glomerular Filtration Rate 50.8, Glucose Level 152H, Uric Acid 7.0, Calcium Level 8.5, Phosphorus Level 2.6, Magnesium Level 1.9, Total Bilirubin 0.4, Aspartate Amino Transf (AST/SGOT) 13L, Alanine Aminotransferase (ALT/SGPT) 18, Alkaline Phosphatase 69, Pro-B-Type Natriuretic Peptide 45, Total Protein 6.0L, Albumin 3.1L, Globulin 2.9, Albumin/Globulin Ratio 1.1, Triglycerides Level 68, Cholesterol Level 112, LDL Cholesterol 71, HDL Cholesterol 30L, Cholesterol/HDL Ratio 3.7, Thyroid Stimulating Hormone (TSH) 0.169L Height (Feet): 5 Height (Inches): 9.00 Weight (Pounds): 169 General Appearance: no apparent distress Cardiovascular: normal rate Respiratory/Chest: lungs clear Objective no change Luis A Dietz MD Feb 27, 2018 15:40
[2018-02-27] MEDS ORDERED: Metoprolol Tartrate 12.5mg TAB ORAL SCH (15:43)
[2018-02-27] MEDS: Metoprolol Tartrate 12.5mg TAB ORAL SCH (20:44)
[2018-02-27] MEDS: Atorvastatin 20mg tab ORAL SCH (20:45)
[2018-02-28 04:00] VITALS: BP 132/85
[2018-02-28] MEDS: NovoLOG Insulin Flexpen SUBQ SCH ×4 (05:23→21:02)
[2018-02-28 06:28] LABS: BASOPHILS % (AUTO) 1.3 % (0.0-2.0); EOSINOPHILS % (AUTO) 3.7 % (0.0-3.0); HEMATOCRIT 35.8 % (42.0-52.0); HEMOGLOBIN 12.1 G/DL (14.2-18.0); LYMPHOCYTES % (AUTO) 34.6 % (20.0-45.0); MEAN CORPUSCULAR VOLUME 87 FL (80-99); MONOCYTES % (AUTO) 6.6 % (1.0-10.0); NEUTROPHILS % (AUTO) 53.8 % (45.0-75.0); PLATELET COUNT 182 K/UL (150-450); RED BLOOD COUNT 4.12 M/UL (4.70-6.10); RED CELL DISTRIBUTION WIDTH 11.6 % (11.6-14.8); WHITE BLOOD COUNT 7.3 K/UL (4.8-10.8)
[2018-02-28 06:59] LABS: ALANINE AMINOTRANSFERASE 26 U/L (12-78); ALBUMIN 3.4 G/DL (3.4-5.0); ALKALINE PHOSPHATASE 75 U/L (46-116); ANION GAP 6 mmol/L (5-15); ASPARTATE AMINO TRANSFERASE 16 U/L (15-37); BILIRUBIN,TOTAL 0.3 MG/DL (0.2-1.0); BLOOD UREA NITROGEN 25 mg/dL (7-18); CALCIUM 8.8 MG/DL (8.5-10.1); CARBON DIOXIDE 28 MMOL/L (21-32); CHLORIDE 108 MMOL/L (98-107); CREATININE 1.5 MG/DL (0.55-1.30); PHOSPHORUS 2.5 MG/DL (2.5-4.9); POTASSIUM 4.1 MMOL/L (3.5-5.1); SODIUM 142 MMOL/L (136-145)
[2018-02-28 08:00] VITALS: BP 150/105
--- NOTE | 2018-02-28 08:23 | General Progress Note ---
Assessment/Plan Problem List: (1) Syncope Assessment & Plan: unsure of cause fall precaution marijuana induced? dehydration? acute RAMON vs ATN? has possible hx of brain aneurysm, MRI brain pending fluids bp monitoring glucose monitoring tele ICD Codes: R55 - Syncope and collapse SNOMED: 440452822 (2) RAMON (acute kidney injury) Assessment & Plan: Cr 3.3 on admit, now 1.7 with hydration dec IVF to 75cc ns nephro consulted, appreciate recs ICD Codes: N17.9 - Acute kidney failure, unspecified SNOMED: 17710099 (3) Hypokalemia Assessment & Plan: K 3.3 replenish check mg level ICD Codes: E87.6 - Hypokalemia SNOMED: 12265839 (4) Marijuana smoker Assessment & Plan: educated on marijuana cessation for over 15 mins unsure if laced with any other drugs however UDS positive only for marijuana ICD Codes: F12.90 - Cannabis use, unspecified, uncomplicated SNOMED: 08602865 (5) DM hyperosmolarity type II Assessment & Plan: ISS accuchecks hgba1c ICD Codes: E11.00 - Type 2 diabetes mellitus with hyperosmolarity without nonketotic hyperglycemic-hyperosmolar coma (N[facility]HC) SNOMED: 42701537, 617258826 (6) Essential hypertension Assessment & Plan: resume home nifedipine tele monitor ICD Codes: I10 - Essential (primary) hypertension SNOMED: 11564436 Status: stable Assessment/Plan diet: renal DVT Prophylaxis: SCD, HSQ Code Status: Full Inpatient admit Hospital Classification Declaration: Based on this initial evaluation, and depending on the patient's clinical course, I anticipate that this patient will require hospitalization for 2-3 midnight for syncope and ramon and close hemodynamic monitoring. Disposition: Once the patient is stable to leave the hospital, I anticipate the patient will likely be discharged to the following environment: home I spent 40 minutes on this patient's case, and 20 minutes were dedicated to counseling and/or care coordination. Discussed with patient/family, nursing staff, SW/CM regarding clinical status, treatment course, and disposition planning. Time of note may not reflect time of encounter. Subjective Date patient seen: Feb 28, 2018 Time patient seen: 08:22 Allergies: Coded Allergies: No Known Allergies (Unverified , 11/27/17) Subjective f/u syncope, ramon patient hydrated overnight, Cr improving slowly pending mri brain, has possible hx of brain aneurysm? denies any complaints continue PT denies headaches, vision changes, chest pain or sob, no nausea/vomiting or diarrhea ROS: 14 point ROS completed and negative except per above HPI Objective Last 24 Hour Vital Signs Date Time Temp Pulse Resp B/P (MAP) Pulse Ox O2 Delivery O2 Flow Rate FiO2 02/28/18 04:00 98.7 76 18 132/85 (101) 99 02/28/18 04:00 76 02/28/18 00:00 73 02/27/18 23:56 98.9 75 18 133/77 (95) 99 02/27/18 21:00 Room Air 02/27/18 20:44 75 111/72 02/27/18 20:00 76 02/27/18 20:00 98.4 85 18 122/79 (93) 98 02/27/18 17:04 82 129/78 02/27/18 16:00 98.4 82 18 129/78 (95) 96 02/27/18 15:33 74 02/27/18 12:00 97.5 109 20 135/88 (104) 100 02/27/18 11:40 108 02/27/18 08:54 82 135/77 02/27/18 08:54 135/77 Intake and Output 02/27/18 02/28/18 19:00 07:00 Output Total 300 ml 1100 ml Balance -300 ml -1100 ml Output Urine Total 300 ml 1100 ml Laboratory Tests 02/28/18 05:35: White Blood Count 7.3, Red Blood Count 4.12L, Hemoglobin 12.1L, Hematocrit 35.8L , Mean Corpuscular Volume 87, Mean Corpuscular Hemoglobin 29.3, Mean Corpuscular Hemoglobin Concent 33.7, Red Cell Distribution Width 11.6, Platelet Count 182, Mean Platelet Volume 9.2, Neutrophils (%) (Auto) 53.8, Lymphocytes (% ) (Auto) 34.6, Monocytes (%) (Auto) 6.6, Eosinophils (%) (Auto) 3.7H, Basophils (%) (Auto) 1.3, Sodium Level 142, Potassium Level 4.1, Chloride Level 108H, Carbon Dioxide Level 28, Anion Gap 6, Blood Urea Nitrogen 25H, Creatinine 1.5H, Estimat Glomerular Filtration Rate 58.7, Glucose Level 189H, Uric Acid 4.8, Calcium Level 8.8, Phosphorus Level 2.5, Magnesium Level 1.8, Total Bilirubin 0.3, Aspartate Amino Transf (AST/SGOT) 16, Alanine Aminotransferase (ALT/SGPT) 26, Alkaline Phosphatase 75, Total Protein 6.7, Albumin 3.4, Globulin 3.3, Albumin/Globulin Ratio 1.0 Height (Feet): 5 Height (Inches): 9.00 Weight (Pounds): 169 General Appearance: WD/WN, no apparent distress, alert EENT: PERRL/EOMI, normal ENT inspection, TMs normal, pharynx normal Neck: non-tender, normal alignment, supple, normal inspection Cardiovascular: normal peripheral pulses, normal rate, regular rhythm Respiratory/Chest: chest wall non-tender, lungs clear, normal breath sounds, no respiratory distress, no accessory muscle use Abdomen: normal bowel sounds, non tender, soft, no organomegaly, no mass Extremities: normal range of motion, non-tender, normal inspection 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
[2018-02-28] MEDS: Metoprolol Tartrate 12.5mg TAB ORAL SCH (08:47)
[2018-02-28] MEDS: Aspirin EC 81mg tab ORAL SCH (08:47)
[2018-02-28] MEDS: Lisinopril 10mg tab ORAL SCH ×2 (08:48→18:10)
--- NOTE | 2018-02-28 09:04 | Nephrology Progress Note ---
Assessment/Plan Problem List: (1) RAMON (acute kidney injury) (2) Hypokalemia (3) Marijuana smoker (4) DM hyperosmolarity type II (5) Syncopal episodes Assessment Acute on chronic renal failure- resolve with hydration BP OOC DM and HTN : Nephropathy ? Presents with syncope Low K MJ in urine Plan stop Hydrate Urine studies monitor renal parameters BP check , control, adjust meds BS check, control per orders med surg Subjective ROS Limited/Unobtainable: No Objective Objective Last 24 Hour Vital Signs Date Time Temp Pulse Resp B/P (MAP) Pulse Ox O2 Delivery O2 Flow Rate FiO2 02/28/18 08:48 150/105 02/28/18 08:47 76 150/105 02/28/18 08:00 98.1 76 18 150/105 (120) 100 02/28/18 04:00 98.7 76 18 132/85 (101) 99 02/28/18 04:00 76 02/28/18 00:00 73 02/27/18 23:56 98.9 75 18 133/77 (95) 99 02/27/18 21:00 Room Air 02/27/18 20:44 75 111/72 02/27/18 20:00 76 02/27/18 20:00 98.4 85 18 122/79 (93) 98 02/27/18 17:04 82 129/78 02/27/18 16:00 98.4 82 18 129/78 (95) 96 02/27/18 15:33 74 02/27/18 12:00 97.5 109 20 135/88 (104) 100 02/27/18 11:40 108 Intake and Output 02/27/18 02/28/18 19:00 07:00 Output Total 300 ml 1100 ml Balance -300 ml -1100 ml Output Urine Total 300 ml 1100 ml Laboratory Tests 02/28/18 05:35: White Blood Count 7.3, Red Blood Count 4.12L, Hemoglobin 12.1L, Hematocrit 35.8L , Mean Corpuscular Volume 87, Mean Corpuscular Hemoglobin 29.3, Mean Corpuscular Hemoglobin Concent 33.7, Red Cell Distribution Width 11.6, Platelet Count 182, Mean Platelet Volume 9.2, Neutrophils (%) (Auto) 53.8, Lymphocytes (% ) (Auto) 34.6, Monocytes (%) (Auto) 6.6, Eosinophils (%) (Auto) 3.7H, Basophils (%) (Auto) 1.3, Sodium Level 142, Potassium Level 4.1, Chloride Level 108H, Carbon Dioxide Level 28, Anion Gap 6, Blood Urea Nitrogen 25H, Creatinine 1.5H, Estimat Glomerular Filtration Rate 58.7, Glucose Level 189H, Uric Acid 4.8, Calcium Level 8.8, Phosphorus Level 2.5, Magnesium Level 1.8, Total Bilirubin 0.3, Aspartate Amino Transf (AST/SGOT) 16, Alanine Aminotransferase (ALT/SGPT) 26, Alkaline Phosphatase 75, Total Protein 6.7, Albumin 3.4, Globulin 3.3, Albumin/Globulin Ratio 1.0 Height (Feet): 5 Height (Inches): 9.00 Weight (Pounds): 169 General Appearance: no apparent distress Objective no change Luis A Dietz MD Feb 28, 2018 09:04
[2018-02-28] MEDS ORDERED: Metoprolol Tartrate 12.5mg TAB ORAL SCH (10:00)
--- NOTE | 2018-02-28 10:43 | Diagnostic Imaging Report ---
Indication: Syncope, history of aneurysm coiling Technique: sagittal T1 fast spin echo, axial T1 FLAIR, axial T2 FLAIR, axial T2 FS PROPELLER, axial T2* GRE, axial diffusion weighted images. ADC and exponential ADC maps generated Comparison: Reference made to brain CT dated 08/31/2009 Findings:Area of cystic encephalomalacia is is seen in the anterior midline. This is symmetric. There may also be a component of susceptibility artifact, related to prior aneurysm coiling, although the signal in this area is predominantly that of fluid.. No abnormal areas of restricted diffusion to suggest acute infarction. No acute hemorrhage or edema. No mass effect nor midline shift. Slightly prominent ventricles and extra axial CSF spaces, in addition to some ex vacuo dilatation in the bilateral frontal regions related to the encephalomalacia.. 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 There is periventricular deep white matter low-attenuation, consistent with chronic ischemic change. The vascular flow voids are preserved. There is a small focus of susceptibility artifact in the right parasagittal parietal cortex posteriorly.. Visualized orbits and sinuses are unremarkable. 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 Impression: Encephalomalacia in the frontal midline, presumably related to prior subarachnoid bleed Negative for acute intracranial bleed, mass effect, or infarct Focus of susceptibility artifact in the right parasagittal parietal cortex, consistent with old microbleed Chronic and age-related changes, as described Left parietal scalp lipoma
[2018-02-28 12:00] VITALS: BP_SYST 154; BP_SYST 164; BP_DIAS 96
[2018-02-28 16:00] VITALS: BP 151/86
[2018-02-28] MEDS ORDERED: Lisinopril 10mg tab ORAL SCH (18:00)
[2018-02-28] MEDS ORDERED: Norco 5mg/325mg tab ORAL SCH (18:45)
[2018-02-28 20:00] VITALS: BP 158/86
[2018-02-28] MEDS ORDERED: Metoprolol 25mg tab ORAL SCH (21:00)
[2018-02-28] MEDS ORDERED: Atorvastatin 20mg tab ORAL SCH (21:00)
[2018-02-28] MEDS: Metoprolol 25mg tab ORAL SCH (21:01)
--- NOTE | 2018-02-28 23:58 | Consultation ---
History of Present Illness General Chief Complaint: Syncope Present Illness Allergies: Coded Allergies: No Known Allergies (Unverified , 11/27/17) Medication History Scheduled Aspirin* (Aspir 81*), 81 MG ORAL DAILY, (Reported) Glipizide* (Glipizide*), 10 MG ORAL BIDAC, (Reported) Labetalol HCl (Labetalol HCl), 300 MG ORAL EVERY 12 HOURS, (Reported) Metformin Hcl* (Metformin Hcl*), 1,000 MG ORAL BID, (Reported) Nifedipine (Nifedipine*), 30 MG ORAL DAILY, (Reported) Simvastatin (Zocor), 20 MG ORAL BEDTIME, (Reported) Patient History Healthcare decision maker Resuscitation status Full Code Advanced Directive on File Physical Exam Last 24 Hour Vital Signs Date Time Temp Pulse Resp B/P (MAP) Pulse Ox O2 Delivery O2 Flow Rate FiO2 02/28/18 21:19 Room Air 02/28/18 21:01 77 158/86 02/28/18 20:00 98.1 77 18 158/86 (110) 98 02/28/18 19:59 98.8 02/28/18 18:10 151/86 02/28/18 16:00 98.8 71 19 151/86 (107) 100 02/28/18 12:00 97.7 67 18 154/96 (115) 99 02/28/18 10:33 76 150/105 02/28/18 08:48 150/105 02/28/18 08:47 76 150/105 02/28/18 08:10 Room Air 02/28/18 08:10 76 02/28/18 08:00 98.1 76 18 150/105 (120) 100 02/28/18 04:00 98.7 76 18 132/85 (101) 99 02/28/18 04:00 76 02/28/18 00:00 73 Intake and Output 02/27/18 02/28/18 19:00 07:00 Output Total 300 ml 1100 ml Balance -300 ml -1100 ml Output Urine Total 300 ml 1100 ml Laboratory Tests Test 02/28/18 05:35 White Blood Count 7.3 K/UL (4.8-10.8) Red Blood Count 4.12 M/UL (4.70-6.10) L Hemoglobin 12.1 G/DL (14.2-18.0) L Hematocrit 35.8 % (42.0-52.0) L Mean Corpuscular Volume 87 FL (80-99) Mean Corpuscular Hemoglobin 29.3 PG (27.0-31.0) Mean Corpuscular Hemoglobin Concent 33.7 G/DL (32.0-36.0) Red Cell Distribution Width 11.6 % (11.6-14.8) Platelet Count 182 K/UL (150-450) Mean Platelet Volume 9.2 FL (6.5-10.1) Neutrophils (%) (Auto) 53.8 % (45.0-75.0) Lymphocytes (%) (Auto) 34.6 % (20.0-45.0) Monocytes (%) (Auto) 6.6 % (1.0-10.0) Eosinophils (%) (Auto) 3.7 % (0.0-3.0) H Basophils (%) (Auto) 1.3 % (0.0-2.0) Sodium Level 142 MMOL/L (136-145) Potassium Level 4.1 MMOL/L (3.5-5.1) Chloride Level 108 MMOL/L (98-107) H Carbon Dioxide Level 28 MMOL/L (21-32) Anion Gap 6 mmol/L (5-15) Blood Urea Nitrogen 25 mg/dL (7-18) H Creatinine 1.5 MG/DL (0.55-1.30) H Estimat Glomerular Filtration Rate 58.7 mL/min (>60) Glucose Level 189 MG/DL (74-106) H Uric Acid 4.8 MG/DL (2.6-7.2) Calcium Level 8.8 MG/DL (8.5-10.1) Phosphorus Level 2.5 MG/DL (2.5-4.9) Magnesium Level 1.8 MG/DL (1.8-2.4) Total Bilirubin 0.3 MG/DL (0.2-1.0) Aspartate Amino Transf (AST/SGOT) 16 U/L (15-37) Alanine Aminotransferase (ALT/SGPT) 26 U/L (12-78) Alkaline Phosphatase 75 U/L (46-116) Total Protein 6.7 G/DL (6.4-8.2) Albumin 3.4 G/DL (3.4-5.0) Globulin 3.3 g/dL Albumin/Globulin Ratio 1.0 (1.0-2.7) Height (Feet): 5 Height (Inches): 9.00 Weight (Pounds): 169 Medications Current Medications Medications (Trade) Dose Ordered Sig/Arnulfo Route PRN Reason Start Time Stop Time Status Last Admin Dose Admin Aspirin (Ecotrin) 81 mg DAILY ORAL 03/01/18 09:00 03/28/18 08:59 Atorvastatin Calcium (Lipitor) 20 mg BEDTIME ORAL 02/28/18 21:00 03/28/18 20:59 02/28/18 21:01 Dextrose (Dextrose 50%) 25 ml Q30M PRN IV Hypoglycemia 02/28/18 13:15 03/28/18 08:44 Dextrose (Dextrose 50%) 50 ml Q30M PRN IV Hypoglycemia 02/28/18 13:15 03/28/18 08:44 Influenza Virus Vaccine Quadrival (Flu Vaccine for Pts Less than 65 Years old) 0.5 ml ONCE ONCE IM 03/01/18 09:00 03/01/18 09:01 UNV Insulin Aspart (NovoLOG) BEFORE MEALS AND HS SUBQ 02/28/18 16:30 03/28/18 11:29 02/28/18 21:02 Lisinopril (Zestril) 10 mg BID ORAL 02/28/18 18:00 03/29/18 08:59 02/28/18 18:10 Metoprolol Tartrate (Lopressor) 25 mg Q12HR ORAL 02/28/18 21:00 03/30/18 20:59 02/28/18 21:01 Potassium Chloride (K-Dur) 40 meq DAILY ORAL 03/01/18 09:00 03/28/18 08:59 Lior Mcfarlane MD Feb 28, 2018 23:58
[2018-03-01 04:14] VITALS: BP 155/60
[2018-03-01] MEDS: NovoLOG Insulin Flexpen SUBQ SCH ×3 (05:39→16:38)
--- NOTE | 2018-03-01 08:02 | Discharge Instructions ---
Discharge Instructions Discharge Instructions Follow up with: PCP For Congestive Heart Failure Reminder Report to your physician any weight gain of 5 pounds or more in one week. Reece Ellison MD Mar 01, 2018 08:02
--- NOTE | 2018-03-01 08:09 | Discharge Summary ---
Discharge Summary Hospital Course Date of Admission Feb 26, 2018 at 06:40 Date of Discharge 03/01/18 Admitting Diagnosis Syncope HPI Jean Tyson is a 57 year old male who was admitted on Feb 26, 2018 at 06:40 for Syncope 56 yo male with h/o htn, dm, presents by EMS after syncopal episode. Patient did not hit his head. Family assisted him. Patient denies any visual changes or headaches, denies chest pain or sob. States he is compliant with his medications but does not know what he takes denies any complaints states he has his home meds at home and does not need refills MRI done during admission, Compared to prior CT scan (from August 31 2009) , previously demonstrated diffuse subarachnoid blood is no longer evident. Encephalomalacia in the frontal midline, presumably related to prior subarachnoid bleed. Negative for acute intracranial bleed, mass effect, or infarct. Focus of susceptibility artifact in the right parasagittal parietal cortex, consistent with old microbleed.Chronic and age-related changes, as described. 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 dehydration? acute RAMON vs ATN? has possible hx of brain aneurysm, MRI brain reviewed, neg acute, read per above feeling better with fluisd patient stable during admit, has been walking around halls yesterday evening without issues ICD Codes: R55 - Syncope and collapse SNOMED: 872132949 (2) RAMON (acute kidney injury) Assessment & Plan: Cr 3.3 on admit, now 1.5 with hydration nephro consulted, appreciate recs ICD Codes: N17.9 - Acute kidney failure, unspecified SNOMED: 90322288 (3) Hypokalemia Assessment & Plan: improved ICD Codes: E87.6 - Hypokalemia SNOMED: 56063233 (4) Marijuana smoker Assessment & Plan: educated on marijuana cessation for over 15 mins unsure if laced with any other drugs however UDS positive only for marijuana ICD Codes: F12.90 - Cannabis use, unspecified, uncomplicated SNOMED: 90051327 (5) DM hyperosmolarity type II Assessment & Plan: ISS accuchecks hgba1c ICD Codes: E11.00 - Type 2 diabetes mellitus with hyperosmolarity without nonketotic hyperglycemic-hyperosmolar coma (N[facility]HC) SNOMED: 95632196, 977045228 (6) Essential hypertension Assessment & Plan: resume home meds tele monitor ICD Codes: I10 - Essential (primary) hypertension SNOMED: 03592008 Status: stable Hospital Course Code Status: Full Inpatient admit Disposition: stable, improved, dc home I spent 40 minutes on this patient's case and discharge/dispo planning Time of note may not reflect time of encounter. Discharge Condition Upon Discharge: stable Discharge Disposition Patient was discharged to home Discharge Diagnoses: (1) Syncopal episodes (2) Hypokalemia (3) Syncope (4) DM hyperosmolarity type II (5) RAMON (acute kidney injury) (6) Essential hypertension (7) Marijuana smoker Discharge Instructions Discharge Instructions Follow up with: PCP Reece Ellison MD Mar 01, 2018 08:09
[2018-03-01 08:37] VITALS: BP 188/106
[2018-03-01] MEDS: Lisinopril 10mg tab ORAL SCH (08:40)
[2018-03-01] MEDS: Metoprolol 25mg tab ORAL SCH (08:41)
[2018-03-01] MEDS ORDERED: Aspirin EC 81mg tab ORAL SCH (09:00)
[2018-03-01] MEDS ORDERED: HydrALAZINE 25mg tab ORAL PRN (10:30)
[2018-03-01 11:19] VITALS: BP_SYST 188; BP_SYST 194; BP_DIAS 106
--- NOTE | 2018-03-01 12:29 | Nephrology Progress Note ---
Assessment/Plan Problem List: (1) RAMON (acute kidney injury) (2) Hypokalemia (3) Marijuana smoker (4) DM hyperosmolarity type II (5) Syncopal episodes Assessment Acute on chronic renal failure- resolve with hydration BP OOC DM and HTN : Nephropathy ? Presents with syncope Low K MJ in urine Plan stop Hydrate Urine studies monitor renal parameters BP check , control, adjust meds - per orders BS check, control per orders med surg Subjective ROS Limited/Unobtainable: No Objective Objective Last 24 Hour Vital Signs Date Time Temp Pulse Resp B/P (MAP) Pulse Ox O2 Delivery O2 Flow Rate FiO2 03/01/18 11:22 74 194/106 03/01/18 11:19 98.0 74 19 194/106 (135) 100 03/01/18 11:01 179/89 03/01/18 09:02 Room Air 03/01/18 08:41 80 188/106 03/01/18 08:40 188/106 03/01/18 08:37 98.2 80 18 188/106 (133) 100 03/01/18 04:14 97.5 80 16 155/60 (91) 98 02/28/18 21:19 Room Air 02/28/18 21:01 77 158/86 02/28/18 20:00 98.1 77 18 158/86 (110) 98 02/28/18 19:59 98.8 02/28/18 18:10 151/86 02/28/18 16:00 98.8 71 19 151/86 (107) 100 Intake and Output 02/28/18 03/01/18 19:00 07:00 Intake Total 240 ml 400 ml Balance 240 ml 400 ml Intake Oral 240 ml 400 ml # Voids 2 3 Height (Feet): 5 Height (Inches): 9.00 Weight (Pounds): 169 General Appearance: no apparent distress Objective no change Luis A Dietz MD Mar 01, 2018 12:29
[2018-03-01 13:34] VITALS: BP 153/89
[2018-03-01 16:07] VITALS: BP 156/82
[2018-03-01] MEDS ORDERED: Flu Vaccine (Alfuria) for Pts Less than 65 Years old IM ONE (17:00)
[2018-03-01 18:00] VITALS: BP 136/77
[2018-03-01] MEDS ORDERED: Lisinopril 20mg tab ORAL SCH (18:00)
--- NOTE | 2018-03-02 00:04 | General Progress Note ---
Assessment/Plan Problem List: (1) Marijuana smoker ICD Codes: F12.90 - Cannabis use, unspecified, uncomplicated SNOMED: 77345723 Assessment/Plan anxiety d/o the pt was reluctant to take meds provided ro/st Subjective Date patient seen: Mar 01, 2018 Neurologic/Psychiatric: Reports: anxiety, depressed, emotional problems Allergies: Coded Allergies: No Known Allergies (Unverified , 11/27/17) Objective Last 24 Hour Vital Signs Date Time Temp Pulse Resp B/P (MAP) Pulse Ox O2 Delivery O2 Flow Rate FiO2 03/01/18 18:00 98.5 17 20 136/77 (96) 89 03/01/18 17:06 141/62 03/01/18 16:49 156/82 03/01/18 16:07 98.5 71 20 156/82 (106) 99 03/01/18 13:34 97.5 71 18 153/89 (110) 98 03/01/18 11:22 74 194/106 03/01/18 11:19 98.0 74 19 194/106 (135) 100 03/01/18 11:01 179/89 03/01/18 09:02 Room Air 03/01/18 08:41 80 188/106 03/01/18 08:40 188/106 03/01/18 08:37 98.2 80 18 188/106 (133) 100 03/01/18 04:14 97.5 80 16 155/60 (91) 98 Intake and Output 03/01/18 03/02/18 19:00 07:00 Intake Total 840 ml Balance 840 ml Intake Oral 840 ml # Voids 3 Height (Feet): 5 Height (Inches): 9.00 Weight (Pounds): 169 General Appearance: no apparent distress, alert Neurologic: oriented x 3, responsive, depressed affect Lior Mcfarlane MD Mar 02, 2018 00:04
== END 2018-03-01 19:57 | disposition home or self-care (01) | DRG 682 ==
LOC: EDBD 05:28 → EMR 06:00 → 2E 06:40 → EDBEDREQ 07:46 → 4E 02-28 13:11
DX: N17.9 Acute kidney failure, unspecified (principal); E11.00 Type 2 diabetes mellitus with hyperosmolarity without nonketotic hyperglycemic-hyperosmolar coma (NKHHC); I13.10 Hypertensive heart and chronic kidney disease without heart failure, with stage 1 through stage 4 chronic kidney disease, or unspecified chronic kidney disease; E11.22 Type 2 diabetes mellitus with diabetic chronic kidney disease; E87.6 Hypokalemia; Z79.84 Long term (current) use of oral hypoglycemic drugs; Z79.82 Long term (current) use of aspirin; R55 Syncope and collapse; F12.90 Cannabis use, unspecified, uncomplicated; K21.9 Gastro-esophageal reflux disease without esophagitis; N18.9 Chronic kidney disease, unspecified
CPT/HCPCS: 36415; 70551; 71045; 80053; 80061; 80307; 81001; 82550; 82553; 82962; 83036; 83735; 83880; 84100; 84300; 84443; 84484; 84550; 85025; 86140; 90686; 96360; 99285; J1815; J8499